=== PATIENT | male | born 1990 | race Caucasian/White ===

== ENCOUNTER 2022-06-20 16:28 | Emergency (ER) | payer BC, OTHER ==
[2022-06-20 17:18] LABS: Absolute Neutrophil Ct (ANC) 4.78 x10^3/uL (1.4-6.9); BASOPHIL % 0.6 % (0.0-0.4); Basophil (Absolute #) 0.05 x10^3/uL (0-0.4); Eosinophil % 1.3 % (0.00-5.0); Eosinophil (Absolute #) 0.11 x10^3/uL (0-0.5); Hematocrit 45.6 % (42-50); Hemoglobin 14.9 g/dL (12.5-18.0); IMMATURE GRAN # 0.03 x10^3u/L (0.00-0.03); IMMATURE GRAN % 0.4 % (0.00-0.4); Lymphocyte (Absolute #) 2.85 x10^3/uL (1.0-4.6); Lymphocytes % 33.4 % (24.0-44.0); Mean Cell Volume 96.8 fL (78-100); Mean Corpuscular Hemoglobin 31.6 pg (26-32); Mean Corpuscular Hgb Concent. 32.7 g/dL (32-36); Mean Platelet Volume 9.3 fL (7.5-11.0); Monocyte (Absolute #) 0.71 x10^3/uL (0.0-1.3); Monocytes % 8.3 % (0.0-12.0); Platelet Count 244 x10^3/uL (150-450); Red Blood Count 4.71 x10^6/uL (4.1-5.6); White Blood Count 8.5 x10^3/uL (4.0-10.5)
--- NOTE | 2022-06-20 17:21 | XRAY ---
Indication: Palpitations. Comparison: November 13, 2013 Portable chest again demonstrates normal heart, lungs, and bony thorax with a few incidental tiny calcified granulomas.
[2022-06-20 17:36] LABS: ALBUMIN 4.3 g/dL (3.5-5.0); ALKALINE PHOSPHATASE 69 U/L (38-126); ANION GAP 10.9 MEQ/L (5-15); BLOOD UREA NITROGEN 17 mg/dL (9-20); CHLORIDE 107 mmol/L (98-107); Carbon Dioxide 26 mmol/L (22-30); Creatinine 1 0.88 mg/dL (0.66-1.25); EST GLOMERULAR FILTRATION RATE > 60.0 ML/MIN; Glucose 114 mg/dL (74-106); Potassium 3.9 mmol/L (3.5-5.1); SGOT/AST 28 U/L (17-59); SGPT/ALT 48 U/L (0-50); SODIUM 140 mmol/L (137-145); Total Protein 6.6 g/dL (6.3-8.2)
[2022-06-20 22:07] VITALS: PULSE 74
[2022-06-20 22:08] VITALS: BP 120/73; O2SAT 98
--- NOTE | 2022-06-20 22:19 | ERPHSYRPT ---
- History of Present Illness Time Seen by Provider: 06/20/22 17:00 Source: patient Exam Limitations: no limitations Patient Subjective Stated Complaint: pt here for feeling like heart is beating fast, and occ chest pain for last 3 days. Triage Nursing Assessment: pt alert,resp easy, skin w/d/p. chest clear, no edema noted Physician History: Patient 32-year-old male presents to emergency department for evaluation of hea rt palpitations. Patient has not been experiencing her palpitations for approximately 3 days. No cecilia chest pain. No syncope. Patient is a smoker. He denies a history of heart palpitations. Patient denies any past medical history that may be contributing to his current symptomology. No history of hypertension. No history of hypercholesterolemia. Patient denies alcohol or drug use. No associated nausea vomiting or diaphoresis. Patient voices no other complaints or concerns at this time. Portions of this note were created with voice recognition technology. There may be grammatical, spelling, punctuation or sound alike errors Timing/Duration: today Severity: moderate Modifying Factors: Improves With: nothing Associated Symptoms: denies symptoms, No nausea, No vomiting, No fever, No syncope Allergies/Adverse Reactions: Penicillins Allergy (Verified 06/20/22 16:43) Home Medications: Multivitamin [Multi-Vitamin Daily] 1 each PO DAILY 06/20/22 [History] Hx Influenza Vaccination/Date Given: No Hx Pneumococcal Vaccination/Date Given: No Immunizations Up to Date: Yes Travel Risk - International Travel Have you traveled outside of the country in past 3 weeks: No - Coronavirus Screening Are you exhibiting any of the following symptoms?: No - Vaccine Status Have you recieved a Covid-19 vaccination: Yes 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[employer]: [employer] - Vaccination Dates Date of 2cond Vaccination (if applicable): 2020 - Review of Systems Constitutional: No Symptoms, No Fever, No Chills Eyes: No Symptoms Ears, Nose, & Throat: No Symptoms Respiratory: No Symptoms, No Cough, No Dyspnea Cardiac: No Symptoms, No Chest Pain, No Edema, No Syncope Abdominal/Gastrointestinal: No Symptoms, No Abdominal Pain, No Nausea, No Vomiting, No Diarrhea Genitourinary Symptoms: No Symptoms, No Dysuria Musculoskeletal: No Symptoms, No Back Pain, No Neck Pain Skin: No Symptoms, No Rash Neurological: No Symptoms, No Dizziness, No Focal Weakness, No Sensory Changes Psychological: No Symptoms Endocrine: No Symptoms Hematologic/Lymphatic: No Symptoms Immunological/Allergic: No Symptoms All Other Systems: Reviewed and Negative - Past Medical History Pertinent Past Medical History: No 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 Disorders: Testicular Cancer - Past Surgical History Past Surgical History: Yes Male Surgical History: Testicular Surgery Other Surgical History: testicular ca - Social History Smoking Status: Current every day smoker Exposure to second hand smoke: No Drug Use: none Patient Lives Alone: No - Nursing Vital Signs Nursing Vital Signs: Initial Vital Signs Temperature 97.2 F 06/20/22 16:49 Pulse Rate 90 06/20/22 16:49 Respiratory Rate 18 06/20/22 16:49 Blood Pressure 130/80 06/20/22 16:49 O2 Sat by Pulse Oximetry 95 06/20/22 16:49 Pain Scale Pain Intensity 0 - Physical Exam General Appearance: no apparent distress, alert Eye Exam: PERRL/EOMI, eyes nml inspection Ears, Nose, Throat Exam: normal ENT inspection, TMs normal, pharynx normal, moist mucous membranes Neck Exam: normal inspection, non-tender, supple, full range of motion Respiratory Exam: normal breath sounds, lungs clear, airway intact, No chest tenderness, No respiratory distress Cardiovascular Exam: regular rate/rhythm, normal heart sounds, normal peripheral pulses Gastrointestinal/Abdomen Exam: soft, normal bowel sounds, No tenderness, No mass Back Exam: normal inspection, normal range of motion, No CVA tenderness, No vertebral tenderness Extremity Exam: normal inspection, normal range of motion, pelvis stable Neurologic Exam: alert, oriented x 3, cooperative, normal mood/affect, nml cerebellar function, nml station & gait, sensation nml, No motor deficits Skin Exam: normal color, warm, dry, No rash Lymphatic Exam: No adenopathy SpO2 Interpretation: normal SpO2: 98 O2 Delivery: Room Air - Course Nursing assessment & vital signs reviewed: Yes EKG Interpreted by Me: RATE (90), Sinus Rhythm, NORMAL AXIS, NORMAL INTERVALS - Radiology Exams Chest X-ray Interpretation: Teleradiologist Report (Normal heart lung bony thorax. Few incidental tiny calcified granulomas.) Ordered Tests: Active Orders 24 hr Category Date Time Status [employer] Inspector STAT Care 06/20/22 17:02 Active EKG-ER Only STAT Care 06/20/22 17:02 Active IV Insertion STAT Care 06/20/22 17:02 Active Pulse Oximetry (ED) STAT Care 06/20/22 17:02 Active CHEST 1 VIEW (PORTABLE) Stat Exams 06/20/22 17:02 Completed CBC W DIFF Stat Lab 06/20/22 17:17 Completed CMP Stat Lab 06/20/22 17:17 Completed D-DIMER QUANTITATIVE Stat Lab 06/20/22 17:17 Completed TROPONIN Q4H Lab 06/20/22 17:17 Completed TROPONIN Q4H Lab 06/20/22 20:05 Completed TROPONIN Q4H Lab 06/21/22 01:15 Ordered TSH [TSH, 3RD Generation] Stat Lab 06/20/22 17:17 Completed Urine Triage Profile Stat Lab 06/20/22 17:02 Ordered Holter Monitor ONCE RT 06/20/22 22:09 Active Lab/Rad Data: Laboratory Result Diagrams 06/20/22 17:17 06/20/22 17:17 Laboratory Results 06/20/22 06/20/22 06/20/22 Range/Units 20:05 17:17 17:17 WBC (4.0-10.5) x10^3/uL RBC (4.1-5.6) x10^6/uL Hgb (12.5-18.0) g/dL Hct (42-50) % MCV (78-100) fL MCH (26-32) pg MCHC (32-36) g/dL RDW (11.5-14.0) % Plt Count (150-450) x10^3/uL MPV (7.5-11.0) fL Gran % (36.0-66.0) % Immature Gran % (Auto) (0.00-0.4) % Nucleat RBC Rel Count (0.00-0.1) % Eos # (Auto) (0-0.5) x10^3/uL Immature Gran # (Auto) (0.00-0.03) x10^3u/L Absolute Lymphs (auto) (1.0-4.6) x10^3/uL Absolute Monos (auto) (0.0-1.3) x10^3/uL Absolute Nucleated RBC (0.00-0.01) x10^3u/L Lymphocytes % (24.0-44.0) % Monocytes % (0.0-12.0) % Eosinophils % (0.00-5.0) % Basophils % (0.0-0.4) % Absolute Granulocytes (1.4-6.9) x10^3/uL Basophils # (0-0.4) x10^3/uL D-Dimer (0.0-0.50) mg/L Sodium (137-145) mmol/L Potassium (3.5-5.1) mmol/L Chloride (98-107) mmol/L Carbon Dioxide (22-30) mmol/L Anion Gap (5-15) MEQ/L BUN (9-20) mg/dL Creatinine (0.66-1.25) mg/dL Estimated GFR ML/MIN Glucose (74-106) mg/dL Calcium (8.4-10.2) mg/dL Total Bilirubin (0.2-1.3) mg/dL AST (17-59) U/L ALT (0-50) U/L Alkaline Phosphatase (38-126) U/L Troponin I < 0.012 < 0.012 (0.000-0.034) ng/mL Serum Total Protein (6.3-8.2) g/dL Albumin (3.5-5.0) g/dL TSH 3rd Generation 1.390 (0.47-4.68) mIU/L 06/20/22 06/20/22 06/20/22 Range/Units 17:17 17:17 17:17 WBC 8.5 (4.0-10.5) x10^3/uL RBC 4.71 (4.1-5.6) x10^6/uL Hgb 14.9 (12.5-18.0) g/dL Hct 45.6 (42-50) % MCV 96.8 (78-100) fL MCH 31.6 (26-32) pg MCHC 32.7 (32-36) g/dL RDW 13.0 (11.5-14.0) % Plt Count 244 (150-450) x10^3/uL MPV 9.3 (7.5-11.0) fL Gran % 56.0 (36.0-66.0) % Immature Gran % (Auto) 0.4 (0.00-0.4) % Nucleat RBC Rel Count 0.0 (0.00-0.1) % Eos # (Auto) 0.11 (0-0.5) x10^3/uL Immature Gran # (Auto) 0.03 (0.00-0.03) x10^3u/L Absolute Lymphs (auto) 2.85 (1.0-4.6) x10^3/uL Absolute Monos (auto) 0.71 (0.0-1.3) x10^3/uL Absolute Nucleated RBC 0.00 (0.00-0.01) x10^3u/L Lymphocytes % 33.4 (24.0-44.0) % Monocytes % 8.3 (0.0-12.0) % Eosinophils % 1.3 (0.00-5.0) % Basophils % 0.6 (0.0-0.4) % Absolute Granulocytes 4.78 (1.4-6.9) x10^3/uL Basophils # 0.05 (0-0.4) x10^3/uL D-Dimer < 0.19 (0.0-0.50) mg/L Sodium 140 (137-145) mmol/L Potassium 3.9 (3.5-5.1) mmol/L Chloride 107 (98-107) mmol/L Carbon Dioxide 26 (22-30) mmol/L Anion Gap 10.9 (5-15) MEQ/L BUN 17 (9-20) mg/dL Creatinine 0.88 (0.66-1.25) mg/dL Estimated GFR > 60.0 ML/MIN Glucose 114 H (74-106) mg/dL Calcium 9.0 (8.4-10.2) mg/dL Total Bilirubin 0.20 (0.2-1.3) mg/dL AST 28 (17-59) U/L ALT 48 (0-50) U/L Alkaline Phosphatase 69 (38-126) U/L Troponin I (0.000-0.034) ng/mL Serum Total Protein 6.6 (6.3-8.2) g/dL Albumin 4.3 (3.5-5.0) g/dL TSH 3rd Generation (0.47-4.68) mIU/L - Progress Progress: improved Progress Note: Patient's heart score is 1. This is due to his history of smoking. Patient is a 32-year-old male presents to the emergency department for evaluation of heart palpitations. Patient has no significant past medical history past social history of smoking. Patient symptoms have been intermittent for the past 3 days. Complexity of problems addressed is moderate. Patient has a new diagnosis with uncertain prognosis. Complexity of data reviewed and analyzed is limited. Test ordered and reviewed. Patient served as an independent historian. No outside documents reviewed. No consultations. Test ordered include EKG which was normal sinus rhythm. Chest x-ray was nonremarkable. CBC CMP both essentially within normal limits except for glucose which was elevated at 114. D-dimer negative. Troponin negative x2. TSH negative. Urine triage negative. Results of testing were used for medical decision making. Risk of complications and or risk of morbidity/mortality of patient management is minimal. We applied a Holter monitor for outpatient evaluation of heart palpitations. While in our ED patient experienced no heart palpitations. No abnormal rhythms observed during monitoring. Patient will be discharged home. Patient agrees to follow-up with his primary care doctor within 48 hours for reevaluation. Time spent during discharge is a pproximately 15 minutes. Discharge diagnosis is heart palpitations. Vital stable. Portions of this note were created with voice recognition technology. There may be grammatical, spelling, punctuation or sound alike errors 06/20/22 22:26 Counseled pt/family regarding: lab results, diagnosis, need for follow-up, rad results - Departure Departure Disposition: Home Clinical Impression: Heart palpitations Condition: Stable Critical Care Time: No Referrals: NUSRAT ARCHER, [employer] SENIOR DEVELOPER [Primary Care Provider] - Follow up/PCP as directed Additional Instructions: Discharge/Care Plan LACI TALLEY was seen on 06/20/22 in the Emergency Room. The patient was counseled regarding Diagnosis,Lab results, Imaging studies, need for follow up and when to return to the Emergency Room. Prescriptions given: Discharge Note I have spoken with the patient and/or caregivers. I have explained the patient's condition, diagnosis and treatment plan based on the information available to me at this time. I have answered the patient's and/or caregiver's questions and addressed any concerns. The patient and/or caregivers have as good understanding of the patient's diagnosis, condition and treatment plan as can be expected at this point. The vital signs have been stable. The patient's condition is stable and appropriate for discharge from the emergency department. The patient will pursue further outpatient evaluation with the primary care physician or other designated or consulting physician as outlined in the discharge instructions. The patient and/or caregivers are agreeable to this plan of care and follow-up instructions have been explained in detail. The patient and/or caregivers have received these instruction. The patient/and or caregivers are aware that any significant change in condition or worsening of symptoms should prompt an immediate return to this or the closest emergency department or call 911.
== END 2022-06-20 22:44 | disposition home or self-care (01) ==
LOC: ED 16:28
DX: R00.2 Palpitations (principal); Z72.0 Tobacco use
CPT/HCPCS: 36000; 36415; 71045; 80053; 84443; 84484; 85025; 85379; 93005; 93041; 93225; 94760; 99284